=== PATIENT | male | born 1995 | race Caucasian/White ===

== ENCOUNTER 2017-12-12 19:54 | Emergency (ER) | payer OTHER, BC ==
[2017-12-12 20:14] VITALS: BP 128/69
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
== END 2017-12-12 22:37 | disposition home or self-care (01) ==
LOC: ER 19:54
DX: S20.212A Contusion of left front wall of thorax, initial encounter (principal); R07.81 Pleurodynia; M79.10 Myalgia, unspecified site; V43.52XA Car driver injured in collision with other type car in traffic accident, initial encounter
CPT/HCPCS: 99283